=== PATIENT | male | born 1945 | race Caucasian/White ===

== ENCOUNTER → 2016-11-17 | Outpatient (CLI) | payer MEDICARE, MEDICAID ==
[~2016-11-17] MED LIST: AMLO10TA80; AP25; FOLI1TAB63; GABA-290; GABA-531 PO; GLIP5TAB12; NEPVIT PO; TERAZOSIN
[2016-11-17 09:50] LABS: BASOPHILS % 0.9 % (0.0-2.0); HEMOGLOBIN. 10.2 g/dL (14.0-18.0); MEAN CORPUSCULAR HEMOGLOBIN 27.4 pg (28.0-32.0); MEAN CORPUSCULAR VOLUME 85.9 fL (80.0-94.0); MEAN PLATELET VOLUME 7.2 fl (7.4-10.4); MONOCYTES % 6.8 % (2.0-8.0); NEUTROPHILS % 80.3 % (40.0-76.0); PLATELET 246 x1000/uL (130-400); RED BLOOD CELL COUNT 3.73 mill/uL (4.7-6.1); RED CELL DISTRIBUTION WIDTH 17.2 % (11.6-14.6)
[2016-11-17 10:07] LABS: CARBON DIOXIDE 28 mEq/L (21-32); CHLORIDE 103 mEq/L (98-107)
== END | disposition home or self-care (01) ==
LOC: LAB 09:03
PROVIDERS: ATTEND Internal Medicine
DX: C67.1 Malignant neoplasm of dome of bladder (principal); N18.4 Chronic kidney disease, stage 4 (severe)
CPT/HCPCS: 36415; 80053; 82378; 85025

== ENCOUNTER → 2016-12-08 | Outpatient (CLI) | payer MEDICARE, MEDICAID | END | disposition home or self-care (01) | LOC: CT 08:19 | PROVIDERS: ATTEND Internal Medicine Hematology & Oncology | DX: C67.1 Malignant neoplasm of dome of bladder (principal); N18.4 Chronic kidney disease, stage 4 (severe); I31.3 Pericardial effusion (noninflammatory); K56.1 Intussusception | CPT/HCPCS: 71250; 74176 ==

== ENCOUNTER → 2017-01-26 | Outpatient (CLI) | payer MEDICARE, MEDICAID | END | disposition home or self-care (01) | LOC: CT 08:34 | PROVIDERS: ATTEND Radiology Radiation Oncology | DX: C67.9 Malignant neoplasm of bladder, unspecified (principal); K56.1 Intussusception; J84.10 Pulmonary fibrosis, unspecified | CPT/HCPCS: 71250; 74176 ==

== ENCOUNTER → 2017-04-22 | Outpatient (CLI) | payer MEDICARE, MEDICAID ==
[~2017-04-22] MED LIST changes: +BARIUM SULFATE 450ML ORAL SUSP ONE; +IOHEXOL-300 100 ML BOTTLE ONE
== END | disposition home or self-care (01) ==
LOC: CT 06:55
PROVIDERS: ATTEND Internal Medicine Gastroenterology
DX: K56.1 Intussusception (principal); I31.3 Pericardial effusion (noninflammatory); I51.7 Cardiomegaly; M47.896 Other spondylosis, lumbar region; M16.0 Bilateral primary osteoarthritis of hip; J98.11 Atelectasis
CPT/HCPCS: 74177; Q9967

== ENCOUNTER → 2018-03-01 | Outpatient (CLI) | payer MEDICARE, MEDICAID ==
[~2018-03-01] MED LIST changes: -GABA-290; -GLIP5TAB12; +GLIP5TAB12 PO; -NEPVIT PO; -TERAZOSIN; +TERAZOSIN PO
== END | disposition home or self-care (01) ==
LOC: CT 07:42
PROVIDERS: ATTEND Internal Medicine Hematology & Oncology
DX: C67.1 Malignant neoplasm of dome of bladder (principal); C18.2 Malignant neoplasm of ascending colon; E11.22 Type 2 diabetes mellitus with diabetic chronic kidney disease; N18.4 Chronic kidney disease, stage 4 (severe); N26.1 Atrophy of kidney (terminal)
CPT/HCPCS: 74177; Q9967

== ENCOUNTER → 2018-12-20 | Outpatient (CLI) | payer MEDICARE, MEDICAID | END | disposition home or self-care (01) | LOC: CT 07:49 | PROVIDERS: ATTEND Internal Medicine Hematology & Oncology | DX: N28.1 Cyst of kidney, acquired (principal); C67.1 Malignant neoplasm of dome of bladder; C18.2 Malignant neoplasm of ascending colon; K82.9 Disease of gallbladder, unspecified; I12.9 Hypertensive chronic kidney disease with stage 1 through stage 4 chronic kidney disease, or unspecified chronic kidney disease; E11.22 Type 2 diabetes mellitus with diabetic chronic kidney disease; N18.4 Chronic kidney disease, stage 4 (severe) | CPT/HCPCS: 71260; 74177; Q9967 ==

== ENCOUNTER → 2019-12-28 | Outpatient (CLI) | payer MEDICARE, MEDICAID | END | disposition home or self-care (01) | LOC: CT 07:05 | PROVIDERS: ATTEND Internal Medicine Hematology & Oncology | DX: C67.1 Malignant neoplasm of dome of bladder (principal); C18.2 Malignant neoplasm of ascending colon; N26.1 Atrophy of kidney (terminal); N28.1 Cyst of kidney, acquired; N62 Hypertrophy of breast; I51.7 Cardiomegaly; R91.8 Other nonspecific abnormal finding of lung field; I31.3 Pericardial effusion (noninflammatory); N18.4 Chronic kidney disease, stage 4 (severe) | CPT/HCPCS: 71260; 74177; Q9967 ==

== ENCOUNTER → 2021-07-29 | Outpatient (CLI) | payer MEDICARE, MEDICAID ==
[~2021-07-29] MED LIST changes: -GABA-531 PO; +GABA-532 PO
== END | disposition home or self-care (01) ==
LOC: CT 08:10
PROVIDERS: ATTEND Internal Medicine Hematology & Oncology
DX: C78.7 Secondary malignant neoplasm of liver and intrahepatic bile duct (principal); C18.2 Malignant neoplasm of ascending colon; C67.1 Malignant neoplasm of dome of bladder; N18.4 Chronic kidney disease, stage 4 (severe); I31.3 Pericardial effusion (noninflammatory); R91.8 Other nonspecific abnormal finding of lung field; N62 Hypertrophy of breast; N28.9 Disorder of kidney and ureter, unspecified
CPT/HCPCS: 71260; 74177; Q9967

== ENCOUNTER → 2022-12-31 | Outpatient (CLI) | payer MEDICARE, MEDICAID | END | disposition home or self-care (01) | LOC: CT 07:29 | PROVIDERS: ATTEND Internal Medicine Hematology & Oncology | DX: N28.1 Cyst of kidney, acquired (principal); N26.1 Atrophy of kidney (terminal); C18.2 Malignant neoplasm of ascending colon; C67.1 Malignant neoplasm of dome of bladder; N18.4 Chronic kidney disease, stage 4 (severe); R91.8 Other nonspecific abnormal finding of lung field; M47.819 Spondylosis without myelopathy or radiculopathy, site unspecified | CPT/HCPCS: 71260; 74177; Q9967 ==

== ENCOUNTER → 2024-01-11 | Outpatient (CLI) | payer MEDICARE, MEDICAID ==
[~2024-01-11] MED LIST changes: +CLON0.2T MT; -GLIP5TAB12 PO; +GLIP5TAB22 PO
== END | disposition home or self-care (01) ==
LOC: CT 07:12
PROVIDERS: ATTEND Internal Medicine Hematology & Oncology
DX: K40.20 Bilateral inguinal hernia, without obstruction or gangrene, not specified as recurrent (principal); I70.0 Atherosclerosis of aorta; C18.2 Malignant neoplasm of ascending colon; C67.1 Malignant neoplasm of dome of bladder; N18.4 Chronic kidney disease, stage 4 (severe); J98.11 Atelectasis; N28.1 Cyst of kidney, acquired; M16.11 Unilateral primary osteoarthritis, right hip; J90 Pleural effusion, not elsewhere classified
CPT/HCPCS: 71260; 74177; Q9967